=== PATIENT | female | born 1975 | race Caucasian/White ===

== ENCOUNTER → 2016-12-15 | Outpatient (CLI) | payer OTHER ==
--- NOTE | 2016-12-15 18:30 | DX ---
Lumbar Spine, AP and Lateral Upright Views, at 2:17 PM CLINICAL HISTORY: 41-year-old female with hip and low back pain. ICD 10 Diagnostic Codes: N25.50 and M54.16. TECHNIQUE: AP and lateral views were obtained, and include the femoral heads, as requested by Dr. Rita muhammad. COMPARISON STUDY: MR imaging of the lumbar spine, dated February 28, 2015. FINDINGS: The lumbar vertebral body heights and posterior alignments are maintained, with the excepti on of a grade 1 anterolisthesis at L5-S1 measuring 7 mm. There appear to be accompanying pars interar ticularis defects, consistent with a spondylolysis. There is [id number]-yorxumsavm advanced degenerative disc space narrowing at the L5-S1 level. There are small Schmorl's node seen along the superior sonya ical endplates of L3 and L4. The intra-articular distances are appropriate. There is a slight pelvic tilt, left iliac crest higher than the right, and there is a 4 mm limb length discrepancy. Mild subch ondral degenerative change is seen in association with the symphysis pubis, right greater than left. The SI joints are not diastatic, and sacral arcuate lines are well-contoured. IMPRESSION: 1. Grade 1 spondylolisthesis at L5-S1, with an accompanying spondylolysis and [id number] degene rative disc space narrowing. 2. There is a 4 mm limb length discrepancy.
== END ==
LOC: FIMAGING 14:14
PROVIDERS: ATTEND Chiropractor
DX: M43.17 Spondylolisthesis, lumbosacral region (principal); M21.752 Unequal limb length (acquired), left femur

== ENCOUNTER → 2016-12-17 | Outpatient (CLI) | payer OTHER ==
--- NOTE | 2016-12-17 14:34 | DX ---
Lumbar Spine, Two Views, Bending Views. HISTORY: Evaluate spondylolisthesis. COMPARISON: 15 December 2016. FINDINGS: There is evidence of spondylolysis at L5. There is 6 mm of anterolisthesis of L5 on S1 whic h is unchanged with flexion or extension. Mild disk height narrowing L5-S1. IMPRESSION: Bilateral spondylolysis at L5 with grade 1 anterior spondylolisthesis of L5 on S1 which i s unchanged with flexion and extension.
== END ==
LOC: FIMAGING 13:32
PROVIDERS: ATTEND Physician Assistant Surgical
DX: M43.17 Spondylolisthesis, lumbosacral region (principal)

== ENCOUNTER → 2017-03-22 | Outpatient (CLI) | payer OTHER | LOC: FIMAGING 09:57 | DX: Z12.31 Encounter for screening mammogram for malignant neoplasm of breast (principal) | CPT/HCPCS: G0202 ==

== ENCOUNTER → 2018-03-23 | Outpatient (CLI) | payer OTHER | LOC: FIMAGING 11:09 | DX: Z12.31 Encounter for screening mammogram for malignant neoplasm of breast (principal) ==

== ENCOUNTER → 2019-03-28 | Outpatient (CLI) | payer OTHER | LOC: FIMAGING 11:56 | DX: Z12.31 Encounter for screening mammogram for malignant neoplasm of breast (principal) ==

== ENCOUNTER 2019-05-23 15:21 | Emergency (ER) | payer OTHER | END 2019-05-23 17:58 | disposition home or self-care (01) ==